=== PATIENT | female | born 1985 | race Caucasian/White ===

== ENCOUNTER → 2020-05-21 15:32 | Outpatient (CLI) | payer MEDICAID ==
[~2020-05-21 15:32] MED LIST: ADIPEX-P37.5 M1 PO; CYMBALTA60 MG PO; GLUCOPHAGE1000 MG PO; LIPITOR20 MG PO; NOVOLOG100 UNIT/1; VISTARIL50 MG; XULTOPHY
== END | disposition home or self-care (01) ==
LOC: D.LAB 15:32
PROVIDERS: ATTEND Obstetrics & Gynecology
DX: Z11.59 Encounter for screening for other viral diseases (principal)

== ENCOUNTER 2020-05-24 05:15 | Day surgery (SDC) | payer MEDICAID ==
[2020-05-21 10:58] LABS: BASOPHILS 0.4 % (0-2); EOSINOPHILS 1.3 % (0-7); HEMATOCRIT 42.5 % (36.0-48.0); IMMATURE GRANULOCYTES 0.4 % (0-5); LYMPHOCYTES 22.9 % (15-50); MCHC 32.9 g/dL (31.0-37.0); MCV 78.8 fL (80.0-100.0); MONOCYTES 7.7 % (2-11); NEUTROPHILS 67.3 % (40-80); PLATELET COUNT 371 10x3/uL (130-400); RBC 5.39 10x6/uL (4.00-5.40); RDW 12.8 % (11.5-14.5); WBC 11.2 10x3/uL (4.8-10.8)
[2020-05-21 11:22] LABS: CALC OSMOLALITY 280 mosm/kg (275-300); CALCIUM 8.9 mg/dL (8.5-10.1); CARBON DIOXIDE 22.7 mmol/L (21.0-32.0); CHLORIDE - SERUM 97 mmol/L (98-107); CREATININE - SERUM 0.7 mg/dL (0.6-1.3); POTASSIUM - SERUM 4.4 mmol/L (3.5-5.1); SODIUM 130 mmol/L (136-145); UREA NITROGEN 12 mg/dL (7-18); eGFR NON AFRICAN AMERICAN > 90 mL/min (90-120)
[2020-05-21 11:43] LABS: GLUCOSE 465 mg/dL (74-106)
[~2020-05-24] VITALS: Ht 162.6 cm; Wt 120.5 kg
[2020-05-24] VITALS (11 sets, daily range): BP systolic 121–167; BP diastolic 55–84; Ht 162.6 cm; Wt 120.5 kg
[2020-05-24 06:05] LABS: HCG URINE NEGATIVE (NEGATIVE)
[2020-05-24 06:49] LABS: UDS - AMPHET NEGATIVE QUAL (NEGATIVE); UDS - BARB NEGATIVE QUAL (NEGATIVE); UDS - BENZO NEGATIVE QUAL (NEGATIVE); UDS - COCAINE NEGATIVE QUAL (NEGATIVE); UDS - OPIATE NEGATIVE QUAL (NEGATIVE); UDS - PCP NEGATIVE QUAL (NEGATIVE); UDS - THC NEGATIVE QUAL (NEGATIVE)
--- NOTE | 2020-05-24 08:36 | NUR ---
PT NOTED HAVING POOR SKIN INTEGRITY AND POOR HYGIENE. LEGS, ABDOMEN, AND ARMS HAVE MULTIPLE SCRATCH LOVING THAT PATIENT STATES ARE CAT SCRATCHES WELL BUG BITES. UNDER BELLY IS VERY RED AND SOME PEELING SKIN NOTED. VAGINA IS RED AND BROKEN SKIN NOTED ON BUTTOX. PT IS A NONCOMPLIANT DIABETIC WHICH WILL OBVIOUSLY MAKE THE HEALING PROCESS DIFFICULT. PT NIPPLE RINGS REMOVED AND GIVEN TO FAMILY.
--- NOTE | 2020-05-24 11:25 | NUR ---
PT ARRIVES TO UNIT-ROOM 1278 VIA BED FROM RR. VOMITING- GREENISH EMESIS. COOL CLOTH GIVEN AND LINENS CHANGED. CO PAIN- STATES PAIN IS IN ABD AND RATES PAIN AN 8 ON SCALE OF 0-10.
--- NOTE | 2020-05-24 11:41 | NUR ---
FINGERSTICK BS DONE-291. LR INFUSING INT LT ARM. ABD WITH LAP INCISIONS X4. PERIPAD PLACED UNDER ABD HORIZONALLY DUE TO STICKING. NO DRAINAGE FROM VAG AREA.
--- NOTE | 2020-05-24 11:44 | NUR ---
HINDS CATH WITH 45CC CLOUDY URINE IN CONTAINER- EMPTIED.
--- NOTE | 2020-05-24 12:29 | NUR ---
SPOKE WITH DR VAN (IN OR) CONCERNING BS OF 291. VO RECEIVED TO PLACED ON Q4HR SS INSULIN PROTOCAL-LOW RESISTANCE.
--- NOTE | 2020-05-24 12:45 | NUR ---
PT MORE AWAKE NOW-TOLERATING SIPS OF DIET SPRITE.
--- NOTE | 2020-05-24 13:05 | NUR ---
MOTHER AT BEDSIDE. PT MORE AWAKE NOW- GLASSES ON- LOOKING AT CELL PHONE.
--- NOTE | 2020-05-24 13:19 | NUR ---
DR HUSDON CALLS UNIT AND ASK IF THEY HAVE BEEN CONSULTED. INFORMED THAT DO NOT SEE ORDER PT THAT SHE SEES DR COLON FOR BS MANAGEMENT. DR HUDSON STATES THEY WILL SEE HER THIS AFTERNOON.
--- NOTE | 2020-05-24 14:42 | NUR ---
AWAKE AND ALERT. REPLACING PIERCINGS. DENIES NEEDS.
--- NOTE | 2020-05-24 15:10 | NUR ---
DR VAN IN ROOM TO SEE PT.
--- NOTE | 2020-05-24 15:20 | NUR ---
NEW ORDERS RECEIVED PER DR VAN.
--- NOTE | 2020-05-24 15:35 | NUR ---
PHONED DR COLON OFFICE OF CONSULT- INFORMED THAT DR HUDSON INSURANCE EXAMINING CLERK TODAY AND OFFICE WILL INFORM HIM OF CONSULT.
--- NOTE | 2020-05-24 15:51 | NUR ---
LAP INCISIONS WNL. PT STATES IS READY FOR DIABETIC DIET.
--- NOTE | 2020-05-24 15:58 | NUR ---
DRINKING GREEN TEA- LOOKING AT CELL PHONE.
--- NOTE | 2020-05-24 17:55 | NUR ---
ATE 90% OF DINNER. PT REQUESTS HINDS CATH OUT. HINDS CATH REMOVED POST BLB DEFLATED -650CC URINE IN BAG.
--- NOTE | 2020-05-24 18:05 | NUR ---
RATES PAIN A 5 ON SCALE OF 0-10. STATES WOULD LIKE PAIN MEDICATION- PERCOCET 5/325 TABS X2 GIVEN FOR PAIN.
--- NOTE | 2020-05-24 18:21 | NUR ---
IV CHANGED TO SALINE LOCK- FLUSHED WITH 10CC NS.
--- NOTE | 2020-05-24 19:15 | NUR ---
REPORT GIVEN BY MAGDA ALATORRE
--- NOTE | 2020-05-24 19:25 | NUR ---
INTRODUCED SELF TO PT. EXPLAINED THAT I WOULD BE BACK FOR A COMPLETE ASSESSMENT. SHE HAD NO NEEDS AT THIS TIME.
--- NOTE | 2020-05-24 20:30 | NUR ---
PT ASSESSMENT COMPLETED. PT IS SITTING UP IN BED WITH NO C/O AT THIS TIME. SHE SAYS SHE REALLY HAS NO PAIN UNTIL SHE TRIES TO MOVE. PT HAS 4 LAP INCISIONS. NO DRAINAGE OR BLEEDING NOTED. SHE HAS A PAD COVERING THE LOWEST ONE WITH NO DRAINAGE. SHE HAS AN IV IN THE LEFT FOREARM. THIS IS SL FOR NOW. SITE HAS NO SWELLING OR REDNESS. PT STATES SHE HAS A HX OF ASTHMA. PT IS A DIABETIC WITH BS Q4HR. IT WAS SAID IN REPORT THAT SHE WAS NOT COMPLIANT WITH HER MEDS AND THEY HAVE BEEM RUNNING HIGH ALL DAY. PT HAS MULTIPLE SCRATCHES AND RED LOVING ON HER BODY. SHE STATES THESE ARE FROM THE [employer] WORK SHE DOES AND THE [employer]. CALL LIGHT IS CLOSE AT HAND. SIDERAIILS UP X2 AND SHE KNOWS TO CALL IF SHE NEEDS TO GET UP.
--- NOTE | 2020-05-24 21:00 | NUR ---
INCENTIVE SPIROMETER TAKEN TO PT. SHE STATES SHE KNOWS HOW TO USE IT. I WATCHED HER AND SHE CAN GET THE METER TO [phone] WITH NO EFFORT. SHE WAS INSTRUCTED TO USE THIS 10 TIMES EVERY HOUR SHE IS AWAKE.
--- NOTE | 2020-05-24 21:40 | NUR ---
PT CALLED FOR HELP TO GO TO THE BR. SHE WAS ABLE TO GET HERSELF TO THE SIDE OF THE BED WITH LITTLE HELP. I HAD HER SIT A MINUTE ON THE SIDE OF BED AND THEN INSTALLATION DRAFTER PLACE TO DETERMINE IF SHE WAS DIZZY. WE SLOWLY WALKED TO THE BR AND SHE VOIDED ABOUT 400 ML. SHE STATES SHE HAS NO VAG BLEEDING. SHE WALKED BACK TO BED WITH NIM ASSIST. SHE GOT HERSELF IN TO BED WITH RN ONLY HELPING WITH HER LEGS. HER SCD'S WERE HOOKED UP AGAIN. SHE WAS ABLE TO SCOOT HERSELF UP IN BED WITH NO ASSIST.
--- NOTE | 2020-05-24 22:00 | NUR ---
BLOOD SUGAR DONE. RESULTS WERE 193 AND SHE RECEIVED 2 UNITS OF INSULIN PER ORDERS.
--- NOTE | 2020-05-24 22:35 | NUR ---
PT REQUESTED PAIN MEDS WITH A PAIN LEVEL OF 6. SHE WAS GIVEN PO PERCOCET 10. SHE SAYS SHE IS GOING TO TRY TO SLEEP NOW.
[2020-05-25] VITALS: BP 144/70
--- NOTE | 2020-05-25 02:15 | NUR ---
BLOOD SUGAR TAKEN WITH RESULTS 210. PER SLIDING SCALE SHE WILL NORMAN 4 UNITS OF HUMALOG INSULIN.
--- NOTE | 2020-05-25 02:27 | NUR ---
INSULIN HAS BEEN GIVEN SQ IN THE LEFT ARM.
[2020-05-25 03:59] VITALS: BP 136/63
--- NOTE | 2020-05-25 04:01 | NUR ---
PT WAKED UP FOR VS. SHE HAS BEEN RESTING QUIETLY. NO C/O AND NO NEEDS AT THIS TIME.
--- NOTE | 2020-05-25 05:36 | NUR ---
RN CALLED TO PT BEDSIDE, PT NEEDS ASSISTANCE GETTING SCD'S OFF TO GO TO THE BATHROOM. SCD'S REMOVED AT THIS TIME, PT AMUBULATED TO BATHROOM WITH STANDBY ASSISTANCE, PT VOIDED UNMEAUSURABLE AMOUNT IN TOILET. PT AMBULATED BACK TO BED AND SCD'S PLACED BACK ON PT.
--- NOTE | 2020-05-25 05:46 | NUR ---
CREW BOAT OPERATOR NOTIFIED OF PT'S POSITIVE SUICIDE SCREEN, PT STATED SHE WAS "IN BAD RELATIONSHIPS AT THE TIME" AND HAD "POOR SELF IMAGE", PT STATES SHE NO LONGER FEELS THIS WAY.
--- NOTE | 2020-05-25 06:08 | NUR ---
Jail to unit to perfom Suicide Risk Assessment.
--- NOTE | 2020-05-25 06:24 | NUR ---
PT HAS HAD A PRETTY GOOD NIGHT. SHE HAS VOIDED TWICE SINCE HER CATHETER WAS TAKEN OUT. SHE HAS NOT HAD ANY IV FLUIDS TONIGHT AND SHE HAS TAKEN IN VERY LITTLE PO FLUID. BS HAVE BEEN TAKEN EVERY 4HOURS. SHE RECEIVED TORADOL IV AT 0600. SHE ASKED FOR PERCOCET. SHE RATED HER PAIN A THREE AND ONLY ONE PERCOCET WAS GIVEN. PT WAS FINE WITH THIS.
--- NOTE | 2020-05-25 06:30 | NUR ---
DR. ZAVALA NOTIFIED AND REVIEWED PATIENT'S BEHAVIOR AND ASSESSMENT RESULTS. PATIENT IS A LOW RISK PER DR. ZAVALA. RESOURCES AND SAFETY PLAN WERE REVIEWED WITH PATIENT AND SHE VERBALIZES UNDERSTANDING.
--- NOTE | 2020-05-25 07:21 | NUR ---
PT AWAKE AND ALERT. S1, S2 REGULAR. LUNG SOUNDS CLEAR AND EQUAL BILATERALLY IN ALL LOBES. BOWEL SOUNDS ACTIVE IN ALL 4 QUADRANTS. INCISIONS RLQ, LLQ, AND UMBILICUS CLEAN AND DRY, WELL APPROXIMATED, GLUE INTACT WITH DRIED BLOOD NOTED TO UMBILICUS INCISION. SUPRAPUBIC INCISION NOTED TO BE REDDENED, NO DRAINAGE NOTED. MOISTURE NOTED IN ABDOMINAL FOLD, PERIPAD PLACED. SCDS ON BLE. PAIN 1/10, PT DENIES NEEDS AT THIS TIME. NO EDEMA NOTED. BED IN LOW POSITION, CALL LIGHT AND PHONE IN REACH.
--- NOTE | 2020-05-25 07:21 | NUR ---
ASSESSMENT COMPLETED PER THIS RN AND THIS RN CONCURS WITH SHIFT ASSESSMENT CHARTED BY MAGDA MARSH.
--- NOTE | 2020-05-25 08:49 | NUR ---
LAYING ON R SIDE, RESTING WITH EYES CLOSED. RESP REGULAR AND UNLABORED, NO S/S OF DISTRESS NOTED. BED IN LOW POSITION WITH SRUP X2. CALL LIGHT AND PHONE WITHIN REACH. WILL CONTINUE TO MONITOR.
--- NOTE | 2020-05-25 09:41 | NUR ---
ROUNDS MADE. PT AROUSES TO VOICE. REQUESTS TO TAKE MEDS AT LATER TIME. DENIES PAIN AND NEEDS AT THIS TIME. WILL CONTINUE TO MONITOR. BED IN LOW POSITION WITH SRUP X2.
--- NOTE | 2020-05-25 10:47 | NUR ---
IRA VILLA TO BEDSIDE TO DISCUSS POC WITH PT. PT AROUSES TO VOICE. FSBS 236.
--- NOTE | 2020-05-25 11:04 | NUR ---
C/O ABD AND INCISIONAL DISCOMFORT, MEDICATED PER EMAR. FSBS 236, 4 UNITS REGULAR INSULIN GIVEN PER SSI. REINFORCED TEACHING ON INCISIONAL CARE. VERBALIZES UNDERSTANDING AND DENIES QUESTIONS. BED IN LOW POSITION WITH SRUP X2. CALL LIGHT AND PHONE WITHIN REACH. WILL CONTINUE TO MONITOR.
--- NOTE | 2020-05-25 11:49 | NUR ---
TORADOL OFFERED AND DECLINED. STATES "I'M NOT HURTING." ICE WATER AND DIET SPRITE PROVIDED. L FA PIV D/C'S WITH TIP INTACT. BANDAID PLACED.
--- NOTE | 2020-05-25 12:03 | NUR ---
DR. VAN AT BEDSIDE DISCUSSING POC AND PLANS FOR F/U WITH PT AND FAMILY MEMBER. DENIES QUESTIONS.
--- NOTE | 2020-05-25 13:32 | NUR ---
AMBULATORY IN [place], STEADY GAIT NOTED. DENIES NEEDS.
--- NOTE | 2020-05-25 14:48 | NUR ---
VERBAL AND WRITTEN D/C INSTRUCTIONS PROVIDED TO PT. VERBALIZES UNDERSTANDING. PT PROVIDED WITH COPY OF SUICIDE PREVENTION HANDOUT AND SAFETY PLAN WELL PFW POST OP HYST HANDOUT. VERBALIZES UNDERSTANDING AND DENIES QUESTIONS. HANDWRITTEN PRESCRIPTIONS PROVIDED. OFF UNIT VIA W/C IN STABLE CONDITION.
--- NOTE | 2020-05-26 06:20 | OP ---
PATIENT NAME: HI BUSTOS MEDICAL RECORD: [id number] :84 LOCATION:D.OPS ADMISSION DATE: SURGEON: CORWIN VAN MD DATE OF OPERATION: 05/24/2020 PREOPERATIVE DIAGNOSES: 1. Menorrhagia. 2. Dysmenorrhea. 3. Morbid obesity. 4. Diabetes. POSTOPERATIVE DIAGNOSES: 1. Menorrhagia. 2. Dysmenorrhea. 3. Morbid obesity. 4. Diabetes. PROCEDURES PERFORMED: 1. Diagnostic laparoscopy. 2. Right salpingectomy. 3. Subtotal hysterectomy. 4. Mini laparotomy. SURGEON: Corwin Van MD PROCESS CONTROL MANAGER: Jessie Martin DO ANESTHESIOLOGIST: Hussain Campbell MD VISCOSE CELLAR CHARGE HAND: Willian Unger. ANESTHESIA: General. FINDINGS: Uterus is without obvious lesion. The right tube is unremarkable. Both right ovary and left ovary are unremarkable. The left tube's fimbria is adhered to the ovary. What was visualized of the abdominal anatomy is unremarkable. SPECIMENS REMOVED: 1. Uterus without cervix. 2. Right tube. SPECIMEN DISPOSITION: All specimens to pathology. ESTIMATED BLOOD LOSS: Less than or equal to 75 mL. FLUIDS: 1800 mL of lactated Ringer's. URINE OUTPUT: 350 mL of clear urine. COMPLICATIONS: None. DRAINS: Walter to gravity. INDICATIONS: The patient is a 34-year-old female with heavy painful periods OPERATIVE REPORT [id number] HI BUSTOS disrupting quality of life. The patient is also a known diabetic and morbidly obese. The patient had poor compliance with diet. The patient understands risks, especially associated with diabetes and wishes to proceed. DESCRIPTION OF PROCEDURE: After informed consent is assured, the patient is taken to the operating room where anesthetic is obtained. The patient is prepped and draped in usual sterile fashion and uterine manipulator placed. Attention is now directed to the abdomen where an incision is made in the umbilicus to accommodate an extended length trocar. This is passed through the umbilicus. Accessory trocar is placed in the right and left of midline. A fourth trocar is placed just to the right of midline. The third accessory port is used with blunt probe to help move bowel and adipose from the field of operation. Starting on the right side, the right tube is elevated and then the mesosalpinx compressed, coagulated, and . The dissection is carried out over the uterine ovarian ligament and round ligaments. The anterior leaf of the broad ligament is opened and the dissection carried to the midline as far inferiorly as possible. Posterior leaf is now dissected free of the vascular bundle, which is compressed, coagulated, and . The attention is now directed to the left side. The left tube is adhesed to the ovary and with the dense adhesions felt prudent not to potentially compromise infundibulopelvic ligament through dissection. The dissection on the left begins at the cornual region, goes across the left tube and uterine ovarian ligament. The round ligament is compressed, coagulated, and . The anterior leaf of the broad ligament is opened. The posterior leaf is opened and dissected free. Poor visualization leads to decision for a subtotal hysterectomy. Dissection begins on the left side and using a reverse cone technique just above the level of the internal os, the uterus is removed from the cervix. Mini laparotomy is now performed in the midline through a transverse incision. The uterus is drawn from the abdomen and the fascia closed with Vicryl. Subcutaneous tissue is reapproximated with plain gut stitch and subcuticular stitches applied at all sites after assessment of the operative field finds it to be adequate and trocars are removed. Sponge, lap, needle counts are correct times 2. The patient went to the recovery area in stable condition. NTS:[id number] Voice Confirmation ID: [id number] DOCUMENT ID: [id number] CORWIN VAN MD at 0620 CC: [id number] DICTATION DATE: 05/24/20 1020 LIQUID SUGAR MELTER: 05/24/201956 [facility] 05/25/20 [id number] [place] [address]
== END 2020-05-25 14:48 | disposition home or self-care (01) ==
LOC: D.OPS 05:15 → D.LD 05:15 → D.PAN 07:00 → D.OPS 07:00 → D.LD 11:31 → D.OPS 05-25 14:48
PROVIDERS: ATTEND Obstetrics & Gynecology
DX: N93.9 Abnormal uterine and vaginal bleeding, unspecified (principal); N94.5 Secondary dysmenorrhea; Z01.411 Encounter for gynecological examination (general) (routine) with abnormal findings; B88.0 Other acariasis; E11.9 Type 2 diabetes mellitus without complications; J45.909 Unspecified asthma, uncomplicated; K21.9 Gastro-esophageal reflux disease without esophagitis; E66.01 Morbid (severe) obesity due to excess calories